=== PATIENT | female | born 1995 | race Caucasian/White ===

== ENCOUNTER 2019-11-30 02:25 | Emergency (ER) | payer MEDICAID, OTHER ==
[2019-11-30 02:39] VITALS: BP 122/76; PULSE 91
--- NOTE | 2019-11-30 03:09 | EDM.PDOC ---
ED HPI GENERAL MEDICAL PROBLEM - General Chief Complaint: General Stated Complaint: GENERAL Time Seen by Provider: 11/30/19 02:40 Source of Information: Reports: Patient History Limitations: Reports: Other (no old records) - History of Present Illness INITIAL COMMENTS - FREE TEXT/NARRATIVE: 24 yo female was observed by her boyfriend while she was sleeping to breath fast followed by about 10 seconds of no breathing. When he woke her up she was light-headed briefly. She says she has had episodes during the day when she feels like she can't get enough oxygen and finds herself getting tingling in her finger tips and light-headed. This seems worse since having to wear a mask at work. Also describes sometimes feeling her heart beat irregularly a few beats after which she feels short of breath. She has not been to Dr. Hernandez to this condition specifically, but may have mentioned it to him in passing? Onset: Today Onset Date: 11/30/19 Duration: Minutes: (0.5) Location: Reports: Generalized Quality: Reports: Other (no pain) Severity: Mild Improves with: Reports: Other (time) Worsens with: Reports: Other (unknown) Context: Reports: Other (See HPI) Associated Symptoms: Reports: Shortness of Breath (at least subjective). Denies : Chest Pain, Diaphoresis, Seizure Treatments MECHANICAL ARTIST: Reports: Other (see below) (none) - Related Data Allergies Allergy/AdvReac Type Severity Reaction Status Date / Time Penicillins Allergy Facial Verified 11/30/19 02:37 Swelling Home Meds: Home Meds NK [No Known Home Meds] 11/15/15 [History] Past Medical History Neurological History: Reports: Concussion, Head Trauma, Migraines Psychiatric History: Reports: Panic Attack - Infectious Disease History Infectious Disease History: Reports: Chicken Pox Social & Family History - Tobacco Use Smoking Status *Q: Never Smoker - Caffeine Use Caffeine Use: Reports: Coffee, Energy Drinks, Soda, Tea - Recreational Drug Use Recreational Drug Use: No ED ROS GENERAL - Review of Systems Review Of Systems: See Below Constitutional: Reports: No Symptoms HEENT: Reports: No Symptoms Respiratory: Reports: Shortness of Breath (at times). Denies: Wheezing, Pleuritic Chest Pain, Cough, Sputum, Hemoptysis Cardiovascular: Reports: Palpitations (at times) Endocrine: Reports: No Symptoms GI/Abdominal: Reports: No Symptoms : Reports: No Symptoms Musculoskeletal: Reports: No Symptoms Skin: Reports: No Symptoms Neurological: Reports: No Symptoms Psychiatric: Denies: Anxiety (denies) ED EXAM, GENERAL - Physical Exam Exam: See Below Exam Limited By: No Limitations General Appearance: Alert, WD/WN, No Apparent Distress Eye Exam: Bilateral Eye: Normal Inspection Ears: Normal External Exam, Normal Canal, Hearing Grossly Normal Ear Exam: Bilateral Ear: Auricle Normal, Canal Normal Nose: Normal Inspection, No Blood Throat/Mouth: Normal Inspection, Normal Lips, Normal Oropharynx, Normal Voice, No Airway Compromise Head: Atraumatic, Normocephalic Neck: Normal Inspection Respiratory/Chest: No Respiratory Distress, Lungs Clear, Normal Breath Sounds, No Accessory Muscle Use Cardiovascular: Regular Rate, Rhythm, No Edema Extremities: Normal Inspection, Normal Range of Motion, Non-Tender, No Pedal Edema Neurological: Alert, Oriented, CN II-XII Intact, Normal Cognition, No Motor/ Sensory Deficits Psychiatric: Anxious Skin Exam: Warm, Dry, Intact, Normal Color, No Rash Course - Vital Signs Last Recorded V/S: Last Vital Signs Temp 36.3 C 11/30/19 02:36 Pulse 91 11/30/19 02:36 Resp 18 11/30/19 02:36 BP 122/76 11/30/19 02:36 Pulse Ox 98 11/30/19 02:36 Departure - Departure Time of Disposition: 03:11 Disposition: Home, Self-Care 01 Condition: Good Clinical Impression: Hyperventilation syndrome - Discharge Information *PRESCRIPTION DRUG MONITORING PROGRAM REVIEWED*: No *COPY OF PRESCRIPTION DRUG MONITORING REPORT IN PATIENT VANESSA: No Instructions: Hyperventilation Referrals: Juan Hernandez MD [Primary Care Provider] - Additional Instructions: Discuss your concerns with Dr. Hernandez. The list of problems that could be involved in your reported symptoms are: premature ventricular contractions-can be found with a heart monitor premature atrial contractions-can be found with a heart monitor anxiety leading to hyperventilation-treated with medication(s) abnormal breathing patterns, if the pattern is mainly at night while sleeping a sleep study would be in order If you can, if this occurs at work, make note of your pulse oximeter reading during one of these bouts of feeling short of breath and report this to Dr. Hernandez as it may help him make the correct diagnosis. Sepsis Event Note - Evaluation Sepsis Screening Result: No Definite Risk - Focused Exam Vital Signs: Vital Signs Temp Pulse Resp BP Pulse Ox 11/30/19 02:36 36.3 C 91 18 122/76 98 Date Exam was Performed: 11/30/19 Time Exam was Performed: 03:03
== END 2019-11-30 03:30 | disposition home or self-care (01) ==
LOC: JP.ED 02:25
DX: F45.8 Other somatoform disorders (principal); Z88.0 Allergy status to penicillin
CPT/HCPCS: 99283

== ENCOUNTER 2020-04-10 12:55 | Emergency (ER) | payer OTHER ==
[2020-04-10 13:50] VITALS: BP 143/78; PULSE 87
--- NOTE | 2020-04-10 13:55 | EDM.PDOC ---
ED HPI GENERAL MEDICAL PROBLEM - General Chief Complaint: Respiratory Problem Stated Complaint: COVID Time Seen by Provider: 04/10/20 13:52 Source of Information: Reports: Patient History Limitations: Reports: No Limitations - History of Present Illness INITIAL COMMENTS - FREE TEXT/NARRATIVE: pt was covid 19 positive about 10 days ago, She was doing well but 2 days ago she had a temp of 99 She is sob. She is very sob at nite. Onset: Other (started 2 days ago. ) Location: Reports: Chest Associated Symptoms: Reports: Shortness of Breath, Weakness - Related Data Allergies Allergy/AdvReac Type Severity Reaction Status Date / Time Penicillins Allergy Severe Facial Verified 04/10/20 13:48 Swelling Home Meds: Home Meds NK [No Known Home Meds] 11/15/15 [History] Past Medical History Neurological History: Reports: Concussion, Head Trauma, Migraines Psychiatric History: Reports: Panic Attack - Infectious Disease History Infectious Disease History: Reports: Chicken Pox Social & Family History - Caffeine Use Caffeine Use: Reports: Coffee, Energy Drinks, Soda, Tea ED ROS GENERAL - Review of Systems Review Of Systems: See Below Constitutional: Reports: Fever, Other ( low grade temp 2 days ago. ) HEENT: Reports: No Symptoms Respiratory: Reports: Shortness of Breath, Cough Cardiovascular: Reports: No Symptoms Endocrine: Reports: No Symptoms GI/Abdominal: Reports: No Symptoms : Reports: No Symptoms Musculoskeletal: Reports: No Symptoms Skin: Reports: No Symptoms Neurological: Reports: No Symptoms ED EXAM, GENERAL - Physical Exam Exam: See Below Exam Limited By: No Limitations General Appearance: Alert, Anxious, Moderate Distress Ears: Normal TMs Nose: Normal Inspection Throat/Mouth: Normal Inspection Head: Atraumatic Neck: Normal Inspection Respiratory/Chest: No Respiratory Distress Cardiovascular: Regular Rate, Rhythm GI/Abdominal: Soft, Non-Tender (Female) Exam: Deferred Rectal (Female) Exam: Deferred Back Exam: Normal Inspection Extremities: Normal Inspection Neurological: Alert, Oriented, Normal Cognition Psychiatric: Anxious Course - Vital Signs Last Recorded V/S: Last Vital Signs Temp 96.5 C H 04/10/20 13:50 Pulse 87 04/10/20 13:50 Resp 20 04/10/20 13:50 BP 143/78 H 04/10/20 13:50 Pulse Ox 97 04/10/20 13:50 - Orders/Labs/Meds Labs: Laboratory Tests 04/10/20 04/10/20 04/10/20 Range/Units 14:08 14:08 14:08 WBC 8.7 (4.5-11.0) K/uL RBC 4.71 (3.30-5.50) M/uL Hgb 13.9 (12.0-15.0) g/dL Hct 43.2 (36.0-48.0) % MCV 92 (80-98) fL MCH 30 (27-31) pg MCHC 32 (32-36) % Plt Count 395 (150-400) K/uL Neut % (Auto) 71 H (36-66) % Lymph % (Auto) 20 L (24-44) % [place] % (Auto) 7 H (2-6) % Eos % (Auto) 2 (2-4) % Baso % (Auto) 1 (0-1) % D-Dimer, Quantitative (0.0-400.0) ng/mL Sodium 136 L (140-148) mmol/L Potassium 4.1 (3.6-5.2) mmol/L Chloride 102 (100-108) mmol/L Carbon Dioxide 25 (21-32) mmol/L Anion Gap 13.1 (5.0-14.0) mmol/L BUN 13 (7-18) mg/dL Creatinine 0.6 (0.6-1.0) mg/dL Est Cr Clr Drug Dosing 122.09 mL/min Estimated GFR (MDRD) > 60 (>60) Glucose 80 (74-106) mg/dL Calcium 9.4 (8.5-10.1) mg/dL Total Bilirubin 0.5 (0.2-1.0) mg/dL AST 20 (15-37) U/L ALT 16 (12-78) U/L Alkaline Phosphatase 84 (46-116) U/L Lactate Dehydrogenase 200 (82-234) U/L C-Reactive Protein 0.07 (0.0-0.3) mg/dL Total Protein 8.2 (6.4-8.2) g/dL Albumin 4.2 (3.4-5.0) g/dL Globulin 4.0 H (2.3-3.5) g/dL Albumin/Globulin Ratio 1.1 L (1.2-2.2) 04/10/20 Range/Units 14:08 WBC (4.5-11.0) K/uL RBC (3.30-5.50) M/uL Hgb (12.0-15.0) g/dL Hct (36.0-48.0) % MCV (80-98) fL MCH (27-31) pg MCHC (32-36) % Plt Count (150-400) K/uL Neut % (Auto) (36-66) % Lymph % (Auto) (24-44) % [place] % (Auto) (2-6) % Eos % (Auto) (2-4) % Baso % (Auto) (0-1) % D-Dimer, Quantitative < 100 (0.0-400.0) ng/mL Sodium (140-148) mmol/L Potassium (3.6-5.2) mmol/L Chloride (100-108) mmol/L Carbon Dioxide (21-32) mmol/L Anion Gap (5.0-14.0) mmol/L BUN (7-18) mg/dL Creatinine (0.6-1.0) mg/dL Est Cr Clr Drug Dosing mL/min Estimated GFR (MDRD) (>60) Glucose (74-106) mg/dL Calcium (8.5-10.1) mg/dL Total Bilirubin (0.2-1.0) mg/dL AST (15-37) U/L ALT (12-78) U/L Alkaline Phosphatase (46-116) U/L Lactate Dehydrogenase (82-234) U/L C-Reactive Protein (0.0-0.3) mg/dL Total Protein (6.4-8.2) g/dL Albumin (3.4-5.0) g/dL Globulin (2.3-3.5) g/dL Albumin/Globulin Ratio (1.2-2.2) - Re-Assessments/Exams Free Text/Narrative Re-Assessment/Exam: 04/10/ pt had a chest xray that was normal. Her cbc was normal. Her ldh, crp and ddime was normal. Departure - Departure Time of Disposition: 15:13 Disposition: Home, Self-Care 01 Condition: Fair Clinical Impression: COVID-19, Anxiety - Discharge Information Instructions: COVID-19 Referrals: PCP,None [Primary Care Provider] - Forms: ED Department Discharge Care Plan Goals: push fluid rest, encourage deep breathing use vit c and zinc as a supplement rtc if symptoms should get worse.
--- NOTE | 2020-04-10 14:51 | CRLCR ---
INDICATION: Shortness of breath. TECHNIQUE: Chest 1 view COMPARISON: None. FINDINGS: No focal consolidation, pleural effusion, or pneumothorax. Normal heart size and pulmonary vascularity. The bones are unremarkable. IMPRESSION: No acute cardiopulmonary findings. Dictated by Vilma Choudhury MD @ Apr 10 2020 2:48PM Signed by Dr. Vilma Choudhury @ Apr 10 2020 2:49PM
== END 2020-04-10 15:30 | disposition home or self-care (01) ==
LOC: JP.ED 12:55
DX: U07.1 COVID-19 (principal); F41.9 Anxiety disorder, unspecified; Z88.0 Allergy status to penicillin
CPT/HCPCS: 36415; 71045; 80053; 83615; 85025; 85379; 86140; 99282; 99285-25